=== PATIENT | male | born 1965 | race Caucasian/White ===

== ENCOUNTER → 2020-12-03 08:19 | Outpatient (CLI) | payer OTHER, SELFPAY ==
--- NOTE | 2020-12-03 08:21 | CA_ITS ---
APPROVED REPORT EXAM: Comprehensive 2D, Doppler, and color-flow Echocardiogram Manager Java: Jing Price RDCS Ht: 6 ft 9 in Wt: 335lbs BSA: 2.89 BP: 143/94 mmHg Indications: Hyperlipidemia, DM, SOB, AFIB, ANNMARIE, 6th nerve palsy, post COVID, ablation 2015, obesity 2D Dimensions LVOT 2.33 cm (M/F) 1.5-2.5 LVEF ([facility]) 47.60 % M: 52 - 72 LV Volume 132.70 mL M: 62 - 150 LV Volume Index 45.239589 mL/m2 M: 34 - 74 LA Volume 42.90 mL LA Volume Index 14.778161 mL/m2 (M/F) 16-34 M-Mode Dimensions RVDd 3.08 cm (0.9-2.6) LA Diam 3.85 cm (1.9-4.0) LVDd 5.59 cm (3.5-5.7) Ao Diam 2.86 cm (2.0-3.7) LVDs 3.99 cm (3.5-5.7) IVSd 0.95 cm (0.6-1.1) PWd 0.65 cm (0.6-1.1) EF (Teich) 54.50% FS 28.60% EDV (Teich) 153.00 mL ESV (Teich) 69.60 mL LV Diastology E Decel Time 207.00 (160-240 msec) E/A Ratio 0.7 MED E' 7.30 (< 7 cm/sec) E'/MED E' Ratio 8.58 (>14) LAT E' 8.60 (<10 cm/sec) E/LAT E' Ratio 7.28 (>14) Mitral Valve MV E Max Camron. 63.00 (40-130 cm/s) MV A Velocity 93.00 (40-130 cm/s) E/A Ratio 0.67 MV Decel. Time 207.00 (160-240 ms) MV PHT 61.00 ms Left Ventricle Left atrium is mildly enlarged, left ventricle is normal size, mild concentric left ventricular hypertrophy, visually estimated ejection fraction 55% with no regional wall motion abnormality, grade 1 diastolic dysfunction seen without tissue Doppler evidence of raise left atrial pressure. Right Ventricle Right atrium and right ventricle mildly enlarged with normal contractility. Aortic Valve Aortic valve is grossly normal, there is no aortic stenosis or aortic insufficiency. Mitral Valve Mitral valve grossly normal, there is trace mitral regurgitation. Tricuspid Valve Tricuspid valve grossly normal, there is trace tricuspid regurgitation. Pulmonic Valve Pulmonic valve is poorly visualized. Great Vessels Aortic root is normal size. Pericardium No significant pericardial effusion noted. Conclusion 1. Mild biatrial enlargement, normal left ventricular size, mild concentric left ventricular hypertrophy, visually estimated ejection fraction 55% with no regional wall motion abnormality. 2. Mildly enlarged right ventricle with normal contractility. 3. Trace mitral and tricuspid regurgitation. 4. No significant pericardial effusion noted. Electronically signed by : Jemal Dewey, 12/04/2020 17:00:56
== END ==
PROVIDERS: PCP Family Medicine; Visit Provider Internal Medicine
DX: I48.0 Paroxysmal atrial fibrillation (principal); I63.9 Cerebral infarction, unspecified; Z79.01 Long term (current) use of anticoagulants; E11.9 Type 2 diabetes mellitus without complications; N18.2 Chronic kidney disease, stage 2 (mild)
CPT/HCPCS: 93306

== ENCOUNTER → 2021-11-27 10:56 | Outpatient (CLI) | payer OTHER, SELFPAY ==
--- NOTE | 2021-11-27 | CA_ITS ---
APPROVED REPORT Exam: Pharmacologic Technologist: Ny Armstrong, Wt: 348 lbs BSA: 2.93 m2 HR: 56 bpm BP: 111/72 mmHg Rhythm: SR Medical History Medical History: HTN, Hyperlipidemia, Diabetes Medications: Amlodipine,,,,, Sotalol,,,,, Losartan,,,,, Atorvastatin,,,,, XaRELTO,,,,, Magnesium,,,,, CiALIS,,,,, JaRDiance,,,,, INSULIN GLARGINE,,,,, Cardiac Risk Factors: HTN, Hyperlipidemia Stress Test Details Test: LEXISCAN HR Resting HR: 55 bpm Max Heart Rate (APMHR): 163.974134 bpm Max HR Achieved: 88 bpm Target HR (85% APMHR): 138.723697 bpm % of APMHR: 53.99 Recovery HR: 72 bpm BP Resting BP: 111/72 mmHg Max BP: 123/69 mmHg Recovery BP: 112.0/70.0 mmHg ECG Resting ECG: SR Clinical Exercise duration: 04:00 min Highest Stage Achieved: Exercise capacity: 1.0 METs Stress ECG Conclusion During lexiscan pt experinced SOA, no CP noted. No arrthythmias noted. <1.5mm ST segment depression Test Summary REST . . . . . . . Sitting REST . . . . . . . Sitting REST 13:46 . . 55 . 111/ 72 . . Stage 1 01:00 . . 76 . . . . Stage 2 01:00 . . 85 . . . . Stage 3 01:00 . . 72 . 122/ 71 . . Stage 4 01:00 . . 71 . 123/ 69 . Stop exercise at 04:00 RECOVERY 01:00 . . 72 . 112/ 70 . . RECOVERY 02:00 . . 71 . 112/ 70 . . RECOVERY 02:27 . . 70 . 121/ 72 . . Electronically signed by : Jemal Dewey MD 11/27/2021 15:35:13
--- NOTE | 2021-11-27 10:59 | CA_ITS ---
APPROVED REPORT EXAM: Comprehensive 2D, Doppler, and color-flow Echocardiogram [employer] Teacher: Sharon Murillo RVT Ht: 6 ft 9 in Wt: 348lbs BSA: 2.94 BP: 124/82 mmHg Indications: CP,DM,HLD,CORNEJO,HX COVID,HX ABLATION,A-FIB,ANNMARIE 2D Dimensions LVOT 2.39 cm (M/F) 1.5-2.5 LA Volume 25.80 mL LA Volume Index 8.80 mL/m2 (M/F) 16-34 M-Mode Dimensions RVDd 3.14 cm (0.9-2.6) LA Diam 4.41 cm (1.9-4.0) LVDd 4.76 cm (3.5-5.7) Ao Diam 3.39 cm (2.0-3.7) LVDs 3.40 cm (3.5-5.7) IVSd 1.02 cm (0.6-1.1) PWd 1.40 cm (0.6-1.1) EF (Teich) 55.00% FS 28.60% EDV (Teich) 105.40 mL TAPSE 3.60 (<1.7) ESV (Teich) 47.40 mL LV Diastology E Decel Time 297.00 (160-240 msec) E/A Ratio 0.7 MED E' 5.70 (< 7 cm/sec) E'/MED E' Ratio 10.60 (>14) LAT E' 10.00 (<10 cm/sec) E/LAT E' Ratio 6.04 (>14) Aortic Valve AO Peak GR. 5.90 mmHg Mitral Valve MV E Max Camron. 60.00 (40-130 cm/s) MV A Velocity 83.00 (40-130 cm/s) E/A Ratio 0.73 MV Decel. Time 297.00 (160-240 ms) MV PHT 87.00 ms Pulmonary Valve PV Peak Velocity 78.00 (50-150 cm/s) Tricuspid Valve TR P. Velocity 128.00 cm/s RAP Estimate 10.00 mmHg RVSP 16.50 mmHg Left Ventricle Left atrium is mildly enlarged, left ventricle is normal size mild concentric left ventricular hypertrophy, estimated ejection fraction 55% with no regional wall motion abnormality, grade 1 diastolic dysfunction seen without tissue Doppler evidence of raise left atrial pressure. Right Ventricle Right atrium and right ventricle are mildly enlarged with normal contractility. Aortic Valve Aortic valve is minimally thickened and fibrosed there is no aortic stenosis or aortic insufficiency. Mitral Valve Mitral valve is grossly normal, there is trace mitral regurgitation. Tricuspid Valve Tricuspid valve grossly normal, there is trace tricuspid regurgitation. Tricuspid regurgitation jet velocity is inadequate for calculation of the right ventricular systolic pressure. Pulmonic Valve Pulmonic valve is poorly visualized. Great Vessels Aortic root is normal size. Inferior vena cava is normal size with normal spectral collapse. Pericardium No significant pericardial effusion noted. Conclusion 1. Mild biatrial enlargement, normal left ventricular size, mild concentric left ventricular hypertrophy, estimated ejection fraction 55% with no regional wall motion abnormality, grade 1 diastolic dysfunction seen without tissue Doppler evidence of raise left atrial pressure. 2. Mildly enlarged right ventricle with normal contractility. 3. Trace mitral and tricuspid regurgitation. 4. No significant pericardial effusion. 5. Inferior vena cava is normal size with normal inspiratory collapse. Electronically signed by : Jemal Dewey MD 11/27/2021 12:59:28
--- NOTE | 2021-11-27 11:30 | NM_ITS ---
APPROVED REPORT Exam: Nuclear Stress Test Indication: C.P., SOB, A-FIB, HTN, HYPERLIPIDEMIA, OBESITY, D.M., SLEEP APNEA Patient Location: Outpatient Stress Tech: Chhaya Yap ME Tech:Katie Oviedo ARRT RT (R)(N)(M) Ht: 6 ft 9 in Wt: 344 lbs HR: 55 bpm BP: 111/72 mmHg BSA: 2.92 m2 TID: 1.17 BMI: 36.8 History: C.P., SOB, A-FIB, HTN, HYPERLIPIDEMIA, OBESITY, D.M., SLEEP APNEA Procedure: Patient received a 0.4 mg of intravenous Lexiscan, resting heart rate 55 bpm, resting blood pressure 111/72 mmHg, with Lexiscan maximum heart rate achived was 85 bpm which is % of the maximum predicted heart rate and blood pressure was 122/71 mmHg. With Lexiscan, patient denied any complaint of chest pain. Electrocardiogram Resting electrocardiogram shows sinus rhythm, with Lexiscan there is less than 1.[address] segment depression noted from the baseline EKG. The EKG portion of the Lexiscan is nondiagnostic. Cardiac Stress and Resting SPECT Images: Cardiac Stress and Resting SPECT images were obtained using technetium 99m Myoview 29.8 mCi stress and 10.30 mCi at rest. Gated SPECT analysis of segmental wall motion and calculation of the ejection fraction also done. Cardiac stress and rest SPECT images show uniform myocardial activity without segmental perfusion abnormality, computer read ejection fraction is 56% with no regional wall motion abnormality, right ventricle is normal size and contractility. Conclusion: 1. The EKG portion of the Lexiscan is nondiagnostic. 2. No scintigraphic evidence of reversible ischemia seen, computer derived ejection fraction is 56% with no regional wall motion abnormality, right ventricle is normal size and contractility. 3. Normal Lexiscan Myoview study. Electronically signed by : Jemal Dewey MD 11/28/2021 07:59:59
== END ==
PROVIDERS: PCP Family Medicine; Visit Provider Nurse Practitioner Family
DX: R06.00 Dyspnea, unspecified (principal); R07.9 Chest pain, unspecified; I48.0 Paroxysmal atrial fibrillation; I20.8 Other forms of angina pectoris; E78.2 Mixed hyperlipidemia; N18.2 Chronic kidney disease, stage 2 (mild); G47.33 Obstructive sleep apnea (adult) (pediatric)
CPT/HCPCS: 78452; 93017; 93306; A9502; J2785